=== PATIENT | female | born 1960 | race Caucasian/White ===

== ENCOUNTER 2017-08-24 17:57 | Observation (INO) | payer MEDICAID ==
[~2017-08-24] VITALS: Ht 172.7 cm; Wt 73.1 kg
[2017-08-24 18:58] LABS: MICROSCOPIC AUTO
[2017-08-24 19:01] LABS: CULTURE INDICATED? NO
[2017-08-24 19:34] LABS: ALANINE AMINOTRANSFERASE 36 U/L (12-78); ALBUMIN 3.6 g/dL (3.4-5.0); ANION GAP 6 mmol/L (5-15); CALCIUM 9.6 mg/dL (8.5-10.1); CHLORIDE 110 mmol/L (98-107); CREATININE 0.84 mg/dL (0.55-1.02)
[2017-08-24 19:36] LABS: ALKALINE PHOSPHATASE 104 U/L (45-117); BILIRUBIN,TOTAL 0.2 mg/dL (0.2-1.0); TOTAL PROTEIN 7.1 g/dL (6.4-8.2)
[2017-08-24 19:47] LABS: BASOPHILS # (AUTO) 0.07 x10^3/uL (0-0.1); BASOPHILS % (AUTO) 1 % (0-1); EOSINOPHILS % (AUTO) 2 % (1-7); LYMPHOCYTES % (AUTO) 37 % (22-44); MD NO; MEAN CORPUSCULAR HEMOGLOBIN 31.9 pg (27.0-34.8); MEAN CORPUSCULAR VOLUME 93.7 fL (80-100); MEAN PLATELET VOLUME 8.6 fL (7.4-10.4); MONOCYTES # (AUTO) 0.64 x10^3/uL (0.2-0.8); MONOCYTES % (AUTO) 9 % (2-9); NEUTROPHILS # (AUTO) 3.56 x10^3/uL (1.8-6.8); NEUTROPHILS % (AUTO) 51 % (42-75); PLATELET COUNT 193 x10^3/uL (130-400); RED BLOOD COUNT 4.54 x10^6/uL (3.82-5.3)
[2017-08-24 20:24] LABS: AMPHETAMINE SCREEN, URINE Negative (Negative); BARBITURATE SCREEN, URINE Negative (Negative); BENZODIAZEPINE SCREEN, URINE Positive (Negative); CANNABINOID SCREEN, URINE Negative (Negative); COCAINE SCREEN, URINE Negative (Negative); METHADONE SCREEN, URINE Positive (Negative); OPIATE SCREEN, URINE Negative (Negative)
[2017-08-24 21:14] LABS: INTERNATIONAL NORMALIZED RATIO 0.9 (0.93-1.1); PROTHROMBIN TIME 9.4 Seconds (9.6-11.5)
[2017-08-24] MEDS ORDERED: NICOTINE 14MG/24 HR PATCH.TD24 ONE (21:45)
[2017-08-24] MEDS ORDERED: LORazepam 1MG TABLET ONE (21:46)
[2017-08-24] MEDS ORDERED: RISP4TAB2 PO (22:00)
[2017-08-24] MEDS ORDERED: LOVA20TA2 PO (22:00)
[2017-08-24] MEDS ORDERED: LORazepam 1MG TABLET PO ONE (22:00)
[2017-08-24] MEDS ORDERED: ALPR2TAB5 PO (22:00)
[2017-08-24] MEDS ORDERED: LISI-167 PO (22:00)
[2017-08-24] MEDS ORDERED: NICOTINE 14MG/24 HR PATCH.TD24 TD ONE (22:00)
[2017-08-24] MEDS ORDERED: METH10OR PO (22:00)
[2017-08-25] MEDS ORDERED: LORazepam 1MG TABLET ONE (00:18)
[2017-08-25] MEDS ORDERED: LORazepam 1MG TABLET PO ONE ×2 (00:30→04:30)
[2017-08-25] MEDS ORDERED: ZIPRASIDONE 20 MG INJ IM ONE ×4 (02:13→19:00)
[2017-08-25] MEDS: SODIUM CHLORIDE 0.9% 1,000 ML IV SCH ×2 (03:07→04:19)
[2017-08-25] MEDS ORDERED: ONDANSETRON ODT 4 MG PO PRN (03:30)
[2017-08-25] MEDS ORDERED: POLYETHYLENE GLYCOL 17 GM PACKET PO PRN (03:30)
[2017-08-25] MEDS ORDERED: hydrALAzine 20 MG/ML, 1ML IVPush PRN (03:30)
[2017-08-25] MEDS ORDERED: ACETAMINOPHEN 325 MG TABLET PO PRN (03:30)
[2017-08-25] MEDS ORDERED: ONDANSETRON 2MG/ML, 2ML IVPush PRN (03:30)
[2017-08-25] MEDS ORDERED: DOCUSATE 100 MG CAPSULE PO PRN (03:30)
[2017-08-25] MEDS ORDERED: PROMETHAZINE 25 MG/ML, 1ML IM PRN (03:30)
[2017-08-25] MEDS ORDERED: BISACODYL 10 MG SUPP PR PRN (03:30)
[2017-08-25] MEDS: CEFTRIAXONE PMX 2GM/50ML 50 ML IV SCH ×2 (03:30→04:20)
[2017-08-25 04:02] LABS: HEMOGLOBIN A1C 5.5 % (4.2-6.3)
[2017-08-25] MEDS: HEPARIN 5,000 UNITS/ML, 1ML SQ SCH ×3 (04:19→19:30)
[2017-08-25 04:35] LABS: FREE T4 (FREE THYROXINE) 0.92 ng/dL (0.76-1.46); THYROID STIMULATING HORMONE 1.97 mIU/L (0.358-3.740)
[2017-08-25 05:03] VITALS: BP 91/58
[2017-08-25 08:09] VITALS: BP 93/63
[2017-08-25] MEDS: CEFDINIR 300 MG CAPSULE PO SCH ×2 (09:12→22:49)
[2017-08-25] MEDS ORDERED: ERGOCALCIFEROL 50,000 UNIT CAPSULE PO SCH (10:00)
[2017-08-25] MEDS ORDERED: METHADONE 10 MG TABLET PO SCH (13:30)
[2017-08-25 13:56] VITALS: BP 109/74
[2017-08-25] MEDS ORDERED: NICOTINE 14MG/24 HR PATCH.TD24 ONE (15:23)
[2017-08-25] MEDS: NICOTINE 14MG/24 HR PATCH.TD24 TD SCH (15:25)
[2017-08-25 18:45] VITALS: BP 101/67
[2017-08-25] MEDS ORDERED: LOVASTATIN 20 MG TABLET PO SCH (21:00)
[2017-08-26] MEDS: HEPARIN 5,000 UNITS/ML, 1ML SQ SCH ×3 (03:30→19:06)
[2017-08-26 04:41] VITALS: BP 108/70
[2017-08-26 05:16] LABS: MEAN CORPUSCULAR HEMOGLOBIN 31.8 pg (27.0-34.8); MEAN CORPUSCULAR HGB CONC 34.1 g/dL (32.4-35.8); MEAN CORPUSCULAR VOLUME 93.2 fL (80-100); RED BLOOD COUNT 4.27 x10^6/uL (3.82-5.3); RED CELL DISTRIBUTION WIDTH 13.7 % (9.6-15.2)
[2017-08-26 05:26] LABS: CHLORIDE 110 mmol/L (98-107)
[2017-08-26 05:34] LABS: ALANINE AMINOTRANSFERASE 35 U/L (12-78); ALBUMIN 3.5 g/dL (3.4-5.0); ALKALINE PHOSPHATASE 104 U/L (45-117); ANION GAP 7 mmol/L (5-15); BILIRUBIN,TOTAL 0.4 mg/dL (0.2-1.0); CALCIUM 9.5 mg/dL (8.5-10.1); CHOL/HDL RATIO 7.2; CHOLESTEROL, TOTAL 244 mg/dL (140-239); CREATININE 0.65 mg/dL (0.55-1.02); HDL CHOL % 14 % (28-40); HDL CHOLESTEROL (DIRECT) 34 mg/dL (40-60); TOTAL PROTEIN 7.1 g/dL (6.4-8.2); TRIGLYCERIDES 556 mg/dL (50-200)
[2017-08-26 06:08] LABS: HEMOGRAM NOTE 8.4; PLATELET COUNT 190 x10^3/uL (130-400)
[2017-08-26 06:09] LABS: MEAN PLATELET VOLUME 8.4 fL (7.4-10.4)
[2017-08-26 06:10] LABS: MD YES
[2017-08-26 06:14] LABS: BAND#(MANUAL) 0.12 x10^3/uL; BANDS%(MANUAL) 2 % (0-7); EOS#(MANUAL) 0.18 x10^3/uL (0.0-0.4); EOS% (MANUAL) 3 % (1-7); LYMPH#(MANUAL) 2.83 x10^3/uL (1-3.4); LYMPHS% (MANUAL) 48 % (22-44); MONOS#(MANUAL) 0.35 x10^3/uL (0.3-2.7); MONOS% (MANUAL) 6 % (2-9); REACTIVE LYMPHS % (MANUAL) 2 % (0-0); SEGS% (MANUAL) 39 % (42-75)
[2017-08-26 06:15] LABS: <PLATELET ESTIMATE> ADEQUATE; <RBC MORPHOLOGY> NORMAL; REACTIVE LYMPHS # (MANUAL) 0.12 x10^3/uL (0-0)
[2017-08-26 06:16] LABS: <PLT MORPHOLOGY> NORMAL PLT MORPH
[2017-08-26 07:37] VITALS: BP 95/66
[2017-08-26] MEDS: METHADONE 10 MG TABLET PO SCH (08:33)
[2017-08-26] MEDS: CEFDINIR 300 MG CAPSULE PO SCH ×2 (08:33→20:30)
[2017-08-26] MEDS: FENOFIBRATE 145 MG TABLET PO SCH (11:22)
[2017-08-26 13:01] VITALS: BP 112/78
[2017-08-26] MEDS: NICOTINE 14MG/24 HR PATCH.TD24 TD SCH (16:06)
[2017-08-26 17:57] VITALS: BP 109/75
[2017-08-26] MEDS ORDERED: ZIPRASIDONE 20 MG INJ IM ONE (18:00)
[2017-08-26 20:26] VITALS: BP 97/66
[2017-08-26] MEDS: LOVASTATIN 20 MG TABLET PO SCH (20:31)
[2017-08-27 02:22] VITALS: BP 108/72
[2017-08-27] MEDS: HEPARIN 5,000 UNITS/ML, 1ML SQ SCH ×3 (03:23→20:50)
[2017-08-27 07:11] VITALS: BP 97/67
[2017-08-27] MEDS: CEFDINIR 300 MG CAPSULE PO SCH ×2 (07:46→20:50)
[2017-08-27] MEDS: METHADONE 10 MG TABLET PO SCH (07:46)
[2017-08-27] MEDS: FENOFIBRATE 145 MG TABLET PO SCH (07:46)
[2017-08-27 12:53] VITALS: BP 97/67
[2017-08-27] MEDS: NICOTINE 14MG/24 HR PATCH.TD24 TD SCH (15:21)
[2017-08-27] MEDS: ARIPIPRAZOLE 10 MG TABLET PO SCH (15:21)
[2017-08-27 20:04] VITALS: BP 111/75
[2017-08-27] MEDS: TEMAZEPAM 15 MG CAPSULE PO PRN (20:50)
[2017-08-27] MEDS: LOVASTATIN 20 MG TABLET PO SCH (20:50)
[2017-08-27] MEDS ORDERED: ZIPRASIDONE 20 MG INJ IM ONE (23:30)
[2017-08-28 01:38] VITALS: BP 108/72
[2017-08-28] MEDS: HEPARIN 5,000 UNITS/ML, 1ML SQ SCH ×3 (03:30→20:12)
[2017-08-28 08:19] VITALS: BP 101/68
[2017-08-28] MEDS: FENOFIBRATE 145 MG TABLET PO SCH (09:36)
[2017-08-28] MEDS: CEFDINIR 300 MG CAPSULE PO SCH ×2 (09:36→20:12)
[2017-08-28] MEDS: ARIPIPRAZOLE 10 MG TABLET PO SCH (09:36)
[2017-08-28] MEDS: METHADONE 10 MG TABLET PO SCH (09:36)
[2017-08-28 13:56] VITALS: BP 109/71
[2017-08-28] MEDS: NICOTINE 14MG/24 HR PATCH.TD24 TD SCH (15:38)
[2017-08-28 19:29] VITALS: BP 104/68
[2017-08-28] MEDS: LOVASTATIN 20 MG TABLET PO SCH (20:12)
[2017-08-28] MEDS: TEMAZEPAM 15 MG CAPSULE PO PRN (20:12)
[2017-08-28 22:24] VITALS: BP 134/84
[2017-08-29] MEDS: HEPARIN 5,000 UNITS/ML, 1ML SQ SCH ×3 (03:30→17:30)
[2017-08-29 08:40] VITALS: BP 122/85
[2017-08-29] MEDS ORDERED: PROMETHAZINE 25 MG/ML, 1ML IM PRN (09:30)
[2017-08-29] MEDS ORDERED: ONDANSETRON ODT 4 MG PO PRN (09:30)
[2017-08-29] MEDS ORDERED: DOCUSATE 100 MG CAPSULE PO PRN (09:30)
[2017-08-29] MEDS ORDERED: ONDANSETRON 2MG/ML, 2ML IVPush PRN (09:30)
[2017-08-29] MEDS ORDERED: BISACODYL 10 MG SUPP PR PRN (09:30)
[2017-08-29] MEDS ORDERED: ACETAMINOPHEN 325 MG TABLET PO PRN (09:30)
[2017-08-29] MEDS ORDERED: ERGOCALCIFEROL 50,000 UNIT CAPSULE PO SCH (09:30)
[2017-08-29] MEDS ORDERED: POLYETHYLENE GLYCOL 17 GM PACKET PO PRN (09:30)
[2017-08-29] MEDS: FENOFIBRATE 145 MG TABLET PO SCH (09:36)
[2017-08-29] MEDS: CEFDINIR 300 MG CAPSULE PO SCH ×2 (09:36→20:48)
[2017-08-29] MEDS: ARIPIPRAZOLE 10 MG TABLET PO SCH (09:37)
[2017-08-29] MEDS: METHADONE 10 MG TABLET PO SCH (09:39)
[2017-08-29] MEDS ORDERED: NICOTINE 14MG/24 HR PATCH.TD24 ONE (15:14)
[2017-08-29] MEDS: NICOTINE 14MG/24 HR PATCH.TD24 TD SCH (15:18)
[2017-08-29 19:46] VITALS: BP 112/72
[2017-08-29] MEDS: TEMAZEPAM 15 MG CAPSULE PO PRN (20:48)
[2017-08-29] MEDS: LOVASTATIN 20 MG TABLET PO SCH (20:49)
[2017-08-29] MEDS ORDERED: CEFDINIR 300 MG CAPSULE PO SCH (21:00)
[2017-08-30] MEDS: HEPARIN 5,000 UNITS/ML, 1ML SQ SCH ×3 (01:30→17:43)
[2017-08-30 07:24] VITALS: BP 118/77
[2017-08-30] MEDS: CEFDINIR 300 MG CAPSULE PO SCH ×2 (08:52→21:43)
[2017-08-30] MEDS: FENOFIBRATE 145 MG TABLET PO SCH (08:52)
[2017-08-30] MEDS: ARIPIPRAZOLE 10 MG TABLET PO SCH (08:52)
[2017-08-30] MEDS: METHADONE 10 MG TABLET PO SCH (08:53)
[2017-08-30] MEDS ORDERED: METHADONE 10 MG TABLET PO SCH (09:00)
[2017-08-30] MEDS ORDERED: FENOFIBRATE 145 MG TABLET PO SCH (09:00)
[2017-08-30] MEDS ORDERED: ARIPIPRAZOLE 10 MG TABLET PO SCH (09:00)
[2017-08-30] MEDS ORDERED: NICOTINE 14MG/24 HR PATCH.TD24 ONE (16:28)
[2017-08-30] MEDS: NICOTINE 14MG/24 HR PATCH.TD24 TD SCH (16:39)
[2017-08-30 19:24] VITALS: BP 111/73
[2017-08-30] MEDS: LOVASTATIN 20 MG TABLET PO SCH (21:44)
[2017-08-30] MEDS: TEMAZEPAM 15 MG CAPSULE PO PRN (21:49)
[2017-08-31] MEDS: HEPARIN 5,000 UNITS/ML, 1ML SQ SCH ×2 (01:30→10:43)
[2017-08-31 08:07] VITALS: BP 102/72
[2017-08-31] MEDS: METHADONE 10 MG TABLET PO SCH (10:42)
[2017-08-31] MEDS: ARIPIPRAZOLE 10 MG TABLET PO SCH (10:42)
[2017-08-31] MEDS: CEFDINIR 300 MG CAPSULE PO SCH (10:42)
[2017-08-31] MEDS: FENOFIBRATE 145 MG TABLET PO SCH (10:42)
[2017-08-31] MEDS ORDERED: ARIP15TA3 PO (13:04)
[2017-08-31] MEDS ORDERED: FENO145T30 PO (13:04)
[2017-08-31] MEDS ORDERED: DOCU-131 PO (13:04)
[2017-08-31] MEDS ORDERED: ERGO500017 PO (13:04)
[2017-08-31] MEDS ORDERED: ARIPIPRAZOLE 15 MG TABLET PO SCH (21:00)
== END 2017-08-31 15:00 | disposition home or self-care (01) ==
LOC: ED 22:17 → OBSVTOIN 08-25 02:45 → INTOOBSV 08-25 02:45 → EDIP 08-25 02:45 → 4NOR 08-25 03:45 → UNDODISOB 08-28 22:09 → 2N 08-28 22:15
PROVIDERS: ADMIT Internal Medicine; ATTEND Internal Medicine
DX: R41.82 Altered mental status, unspecified (principal); I10 Essential (primary) hypertension; E78.5 Hyperlipidemia, unspecified; F41.9 Anxiety disorder, unspecified; E55.9 Vitamin D deficiency, unspecified; E78.1 Pure hyperglyceridemia; F17.210 Nicotine dependence, cigarettes, uncomplicated; F29 Unspecified psychosis not due to a substance or known physiological condition; G93.41 Metabolic encephalopathy; F31.9 Bipolar disorder, unspecified; I95.9 Hypotension, unspecified; G93.40 Encephalopathy, unspecified; Z79.899 Other long term (current) drug therapy
CPT/HCPCS: 36415; 70450; 70551; 80053; 80061; 80307; 81001; 82140; 82306; 82607; 83036; 83735; 84439; 84443; 85025; 85610; 87086; 96372; 97162; 97165; 99285; G0378; G8978; G8979; G8980; J1644; J3486; J0696; J7030

== ENCOUNTER 2017-10-22 09:29 | Emergency (ER) | payer MEDICAID ==
[~2017-10-22] VITALS: Ht 167.6 cm; Wt 69.8 kg
[~2017-10-22 09:29] MED LIST: ALPR2TAB5 PO; ARIP15TA3 PO; DOCU-131 PO; ERGO500017 PO; FENO145T30 PO; LISI-167 PO; LOVA20TA2 PO; METH10OR PO; RISP4TAB2 PO
[2017-10-22 09:44] VITALS: BP 140/98
[2017-10-22 12:11] LABS: BASOPHILS # (AUTO) 0.03 x10^3/uL (0-0.1); BASOPHILS % (AUTO) 0 % (0-1); EOSINOPHILS # (AUTO) 0.07 x10^3/uL (0-0.4); EOSINOPHILS % (AUTO) 1 % (1-7); LYMPHOCYTES # (AUTO) 2.78 x10^3/uL (1-3.4); LYMPHOCYTES % (AUTO) 37 % (22-44); MD NO; MEAN CORPUSCULAR HEMOGLOBIN 32.2 pg (27.0-34.8); MEAN CORPUSCULAR HGB CONC 34.4 g/dL (32.4-35.8); MEAN CORPUSCULAR VOLUME 93.5 fL (80-100); MEAN PLATELET VOLUME 7.8 fL (7.4-10.4); MONOCYTES # (AUTO) 0.51 x10^3/uL (0.2-0.8); MONOCYTES % (AUTO) 7 % (2-9); NEUTROPHILS # (AUTO) 4.24 x10^3/uL (1.8-6.8); NEUTROPHILS % (AUTO) 56 % (42-75); PLATELET COUNT 323 x10^3/uL (130-400); RED BLOOD COUNT 4.84 x10^6/uL (3.82-5.3); RED CELL DISTRIBUTION WIDTH 13.7 % (9.6-15.2)
[2017-10-22 12:23] LABS: ALANINE AMINOTRANSFERASE 29 U/L (12-78); ALBUMIN 4.5 g/dL (3.4-5.0); ANION GAP 7 mmol/L (5-15); CALCIUM 9.9 mg/dL (8.5-10.1); CHLORIDE 103 mmol/L (98-107); CREATININE 0.84 mg/dL (0.55-1.02); SALICYLATE LEVEL 3.5 mg/dL (2.8-20.0)
[2017-10-22 12:25] LABS: ALKALINE PHOSPHATASE 107 U/L (45-117); BILIRUBIN,TOTAL 0.4 mg/dL (0.2-1.0); TOTAL PROTEIN 8.9 g/dL (6.4-8.2)
[2017-10-22 12:26] LABS: ACETAMINOPHEN < 2 mcg/mL (10-30)
[2017-10-22 14:52] LABS: AMPHETAMINE SCREEN, URINE Negative (Negative); BARBITURATE SCREEN, URINE Negative (Negative); BENZODIAZEPINE SCREEN, URINE Negative (Negative); CANNABINOID SCREEN, URINE Negative (Negative); COCAINE SCREEN, URINE Negative (Negative); METHADONE SCREEN, URINE Positive (Negative); OPIATE SCREEN, URINE Negative (Negative)
== END 2017-10-22 15:18 | disposition home or self-care (01) ==
LOC: ED 11:15
DX: Z00.00 Encounter for general adult medical examination without abnormal findings (principal); F32.9 Major depressive disorder, single episode, unspecified; R63.0 Anorexia; Z88.2 Allergy status to sulfonamides; Z88.8 Allergy status to other drugs, medicaments and biological substances; Z79.899 Other long term (current) drug therapy
CPT/HCPCS: 36415; 80053; 80307; 80329; 85025; 99284; G0480

== ENCOUNTER 2018-03-23 19:32 | Emergency (ER) | payer MEDICAID ==
[~2018-03-23] VITALS: Ht 172.7 cm; Wt 52.7 kg
--- NOTE | 2018-03-23 20:08 | NUR ---
SUMMARY NOTE UP TO NOW; SEE TRIAGE. UPON ARRIVAL PT. PLACED ON CONTINUOUS PULSE OX, B/P, AND HEART MONITORS AND PROVIDED WITH CALL LIGHT, SAFETY MEASURES OBSERVED. PT. HAS HAD EKG COMPLETED AND PRESENTED TO SHEREEN. LAB COMPLETED BLOOD DRAW. CHEST X-RAY COMPLETED, [facility]
[2018-03-23 20:09] LABS: BASOPHILS # (AUTO) 0.03 x10^3/uL (0-0.1); BASOPHILS % (AUTO) 0 % (0-1); EOSINOPHILS # (AUTO) 0.05 x10^3/uL (0-0.4); EOSINOPHILS % (AUTO) 1 % (1-7); LYMPHOCYTES # (AUTO) 1.28 x10^3/uL (1-3.4); LYMPHOCYTES % (AUTO) 18 % (22-44); MD NO; MEAN CORPUSCULAR HEMOGLOBIN 33.1 pg (27.0-34.8); MEAN CORPUSCULAR HGB CONC 34.1 g/dL (32.4-35.8); MEAN CORPUSCULAR VOLUME 96.9 fL (80-100); MEAN PLATELET VOLUME 8.5 fL (7.4-10.4); MONOCYTES # (AUTO) 0.49 x10^3/uL (0.2-0.8); MONOCYTES % (AUTO) 7 % (2-9); NEUTROPHILS # (AUTO) 5.15 x10^3/uL (1.8-6.8); NEUTROPHILS % (AUTO) 74 % (42-75); PLATELET COUNT 265 x10^3/uL (130-400); RED BLOOD COUNT 4.79 x10^6/uL (3.82-5.3)
[2018-03-23 20:15] LABS: INTERNATIONAL NORMALIZED RATIO 1.01 (0.93-1.1); PROTHROMBIN TIME 10.7 Seconds (9.6-11.5)
[2018-03-23 20:16] LABS: ALANINE AMINOTRANSFERASE 16 U/L (12-78); ALBUMIN 4.2 g/dL (3.4-5.0); ANION GAP 11 mmol/L (5-15); CALCIUM 10.1 mg/dL (8.5-10.1); CHLORIDE 105 mmol/L (98-107); CREATININE 0.69 mg/dL (0.55-1.02)
[2018-03-23 20:21] LABS: ALKALINE PHOSPHATASE 73 U/L (45-117); BILIRUBIN,TOTAL 0.7 mg/dL (0.2-1.0); TROPONIN I < 0.015 ng/mL (0.000-0.045)
--- NOTE | 2018-03-23 20:43 | NUR ---
DR. GONZALES AT BS TO EVAL PT. AND DISCUSS POC WITH PT. AND FAMILY. BS BRANDON IS AT BS FOR UA BUT PT. REPORTS UNABLE TO VOID AT THIS TIME.
--- NOTE | 2018-03-23 20:45 | NUR ---
BINU BEST WAS AWARE THAT FSBS WAS NOT COMPLETED PRIOR TO LABS BEING BACK AND PER HER NO NEED FOR FSBS NOW.
--- NOTE | 2018-03-23 20:54 | NUR ---
PT. GIVEN WATER PER OK FROM DR. GONZALES. PT. STATES "I AM NOT GOING TO BE ABLE TO PROVIDE A URINE SAMPLE." PT. ENCOURAGED TO DRINK WATER AND GIVE IT A TRY.
--- NOTE | 2018-03-23 21:22 | NUR ---
STRAIGHT CATH UA COLLECTED PER MD. PT. TOLERATED WELL. URINE WALKED TO LAB. PT. WITH DENIES NEEDS. CALL LIGHT IN REACH. ALL SAFETY MEASURES OBESRVED.
[2018-03-23 21:34] LABS: MICROSCOPIC NOT IND
[2018-03-23 21:38] LABS: CULTURE INDICATED? NO
[2018-03-23 21:53] LABS: AMPHETAMINE SCREEN, URINE Negative (Negative); BARBITURATE SCREEN, URINE Negative (Negative); BENZODIAZEPINE SCREEN, URINE Negative (Negative); CANNABINOID SCREEN, URINE Negative (Negative); COCAINE SCREEN, URINE Negative (Negative); METHADONE SCREEN, URINE Negative (Negative); OPIATE SCREEN, URINE Negative (Negative)
--- NOTE | 2018-03-23 21:59 | NUR ---
PT. CHART UP FOR RECHECK BY SHEREEN.
--- NOTE | 2018-03-23 22:18 | NUR ---
REQUESTED BINU BEST TO GO IN AND DISCUSS PLAN FOR D/C WITH PT. AND FAMILY.
[2018-03-23 22:47] VITALS: BP 117/77
== END 2018-03-23 22:48 | disposition home or self-care (01) ==
LOC: ED 22:15
DX: R53.1 Weakness (principal)
CPT/HCPCS: 36415; 70450; 71045; 80053; 80307; 81003; 82533; 83690; 83735; 84443; 84484; 85025; 85610; 85730; 93005; 99284

== ENCOUNTER 2018-09-23 10:17 | Emergency (ER) | payer MEDICAID ==
[~2018-09-23] VITALS: Ht 172.7 cm; Wt 38.1 kg
[2018-09-23 12:26] VITALS: BP 100/65
== END 2018-09-23 16:49 | disposition home or self-care (01) ==
LOC: ED 16:15
DX: K59.00 Constipation, unspecified (principal)
CPT/HCPCS: 36415; 74021; 80053; 83690; 85025; 99284